=== PATIENT | female | born 1940 | race African-American/Black ===

== ENCOUNTER 2024-05-23 09:41 | Emergency (ER) | payer OTHER ==
[~2024-05-23] VITALS: Ht 160 cm; Wt 85.7 kg
[~2024-05-23 09:41] MED LIST: BUMEX IV; CALCIUM600 MG PO; COMADIN; COZAAR100 MG PO; NEURONTIN600 MG PO; NORVASC10 MG PO; PLAVIX75 MG PO; ULTRACET
[2024-05-23] MEDS ORDERED: 0.9 % SODIUM CHLORIDE 1,000 ML IV ONE (10:00)
[2024-05-23] MEDS ORDERED: FAMOtidine 10 MG/ML (4ML VIAL) IV ONE (10:00)
[2024-05-23] MEDS ORDERED: FAMOTIDINE/PF 20 MG/2 ML VIAL ONE (10:07)
[2024-05-23 11:14] LABS: HEMATOCRIT 26.5 % (36.0-45.00); MEAN CELL VOLUME 82.2 fL (80.00-100.00); MEAN CORPUSCULAR HGB CONC 32.1 g/dl (32.0-36.0); RED BLOOD COUNT 3.22 M/uL (4.00-6.00); RED CELL DISTRIBUTION WIDTH 15.5 % (11.5-14.5)
[2024-05-23 11:17] LABS: MEAN CORPUSCULAR HEMOGLOBIN 26.3 pg (27.00-32.0)
[2024-05-23 11:18] LABS: HEMOGLOBIN 8.5 g/dL (12.0-15.00)
[2024-05-23 11:19] LABS: INR 1.12; PLATELET COUNT 165 K/uL (150-450); PROTHROMBIN TIME 12.1 SECONDS (9.0-11.5)
[2024-05-23 11:21] LABS: ALBUMIN 2.9 gm/dL (3.4-5.0); BILIRUBIN TOTAL 0.51 mg/dL (0.3-1.2); CALCIUM 8.3 mg/dL (8.5-10.1); CREATININE SERUM 1.17 mg/dL (0.55-1.02); GFR 44.39; GLOBULINA 4.4 G/DL (2.4-3.5); POTASSIUM 4.45 mEq/L (3.5-5.1); TOTAL PROTEIN 7.3 gm/dL (6.4-8.2)
[2024-05-23 13:47] LABS: URINE APPEARANCE Clear; URINE BILIRRUBIN Negative (NEGATIVE); URINE BLOOD Negative; URINE COLOR Yellow; URINE GLUCOSE Negative (NEGATIVE); URINE KETONE Negative (NEGATIVE); URINE LEUKOCYTE Negative; URINE NITRATE Negative; URINE PROTEIN Negative (NEGATIVE); URINE UROBILINOGEN 0.2 E.U./dl
[2024-05-23 13:49] LABS: URINE BACTERIA 101.5 uL (0.0-1933); URINE EPITHELIAL CELLS 7.2 uL (0.0-38.8); URINE RBC 3.6 uL (0.0-20.8); URINE WBC 4.1 uL (0.0-23.2)
[2024-05-23 13:59] LABS: URINE CAST 0.44 uL (0.0-1.40)
== END 2024-05-23 18:03 | disposition home or self-care (01) ==
LOC: ER 09:41
PROVIDERS: General Practice
DX: R42 Dizziness and giddiness (principal); I10 Essential (primary) hypertension
CPT/HCPCS: 36415; 70450; 71045; 93005; 96365; 96366; 99284; J3490; J7030